=== PATIENT | female | born 1975 | race Two or more races ===

== ENCOUNTER → 2019-01-14 | Emergency (ER) | payer MEDICAID ==
[~2019-01-14] VITALS: Ht 162.6 cm; Wt 63.5 kg
[~2019-01-14] MED LIST: BACITRACIN-P28.35 GM TP; NAPROXEN500 M2 ORAL; Naproxen 500mg tab ORAL ONE; Neosporin Oint Ud Pkt TOPIC ONE; ROBAXIN-750750 MG PO; ZOFRAN4 M3 ORAL
[2019-01-14 13:53] VITALS: BP 116/78
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
[2019-01-14] MEDS: Neosporin Oint 15gm TOPIC SCH ×2 (14:30→17:55)
--- NOTE | 2019-01-14 15:00 | NUR ---
ED Nurse Note: ANA was at bedside. ANA [facility] officer MIA Naik #[id number]
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
--- NOTE | 2019-01-14 15:58 | Diagnostic Imaging Report ---
Indication: Pain status post trauma Technique: XRAY Hip Routine 2v+ w/Pelv-L Comparison: None Findings: Bone mineralization within normal limits. Bilateral hip joints are maintained, without evidence of dislocation. Sacroiliac joints and pubis also maintained. There is no evidence of acute fracture. Particular there is no evidence of acute left hip fracture. Imaged lower lumbar spine grossly unremarkable. Some small pelvic phlebolith are noted. Impression: No acute fracture or dislocation
[2019-01-14 16:20] VITALS: BP 115/78
--- NOTE | 2019-01-14 16:20 | NUR ---
ER DISCHARGE NOTE: Patient is cleared to be discharged per ERMD, pt is aox4, on room air, with stable vital signs. pt was given dc and prescription instructions, pt was able to verbalize understanding, pt id band removed without complications. pt is able to ambulate with steady gait. pt took all belongings.
== END | disposition home or self-care (01) ==
LOC: EMR 15:10
DX: S70.12XA Contusion of left thigh, initial encounter (principal); S40.812A Abrasion of left upper arm, initial encounter; S70.212A Abrasion, left hip, initial encounter; V43.52XA Car driver injured in collision with other type car in traffic accident, initial encounter; Y92.410 Unspecified street and highway as the place of occurrence of the external cause
CPT/HCPCS: 73502; 99283